=== PATIENT | female | born 1995 | race Caucasian/White ===

== ENCOUNTER 2018-01-14 15:16 | Emergency (ER) | payer OTHER ==
[2018-01-14 15:22] VITALS: RESP 18
[2018-01-14] MEDS ORDERED: ONDANSETRON 4 MG/2 ML VIAL IVP ONE (16:27)
[2018-01-14] MEDS ORDERED: KETOROLAC 30 MG/1 ML SDV IVP ONE (16:27)
--- NOTE | 2018-01-14 16:27 | EDPHY ---
H & P Stated Complaint: LLQ pain starting today, concerned re ovaria cyst Time Seen by Provider: 01/14/18 16:19 HPI/ROS: CHIEF COMPLAINT: Ovarian cyst HISTORY OF PRESENT ILLNESS: The patient is a 22-year-old female who comes to the emergency department complaining of left lower quadrant pain that is reminiscent of previous ovarian cysts that have ruptured. She states that she has had mild intermittent pain for the last week and then had severe intense pain about an hour ago that is now resolving. No fever. No vaginal bleeding or discharge. She denies risk of . No urinary symptoms. She feels slightly nauseous but has not vomited. REVIEW OF SYSTEMS: Constitutional: denies: chills, fever, recent illness, recent injury EENTM: denies: blurred vision, double vision, nose congestion Respiratory: denies: cough, shortness of breath Cardiac: denies: chest pain, irregular heart rate, lightheadedness, palpitations Gastrointestinal/Abdominal: See HPI Genitourinary: denies: dysuria, frequency, hematuria, pain Musculoskeletal: denies: joint pain, muscle pain Skin: denies: lesions, rash, jaundice, bruising Neurological: denies: headache, numbness, paresthesia, tingling, dizziness, weakness Hematologic/Lymphatic: denies: blood clots, easy bleeding, easy bruising Immunologic/allergic: denies: HIV/AIDS, transplant EXAM: GENERAL: Well-appearing, well-nourished and in no acute distress. HEAD: Atraumatic, normocephalic. EYES: Pupils equal round and reactive to light, extraocular movements intact, sclera anicteric, conjunctiva are normal. ENT: TMs normal, nares patent, oropharynx clear without exudates. Moist mucous membranes. NECK: Normal range of motion, supple without lymphadenopathy or JVD. LUNGS: Breath sounds clear to auscultation bilaterally and equal. No wheezes rales or rhonchi. HEART: Regular rate and rhythm without murmurs, rubs or gallops. ABDOMEN: Soft, nontender, normoactive bowel sounds. No guarding, no rebound. No masses appreciated. BACK: No CVA tenderness, no spinal tenderness, step-offs or deformities EXTREMITIES: Normal range of motion, no pitting or edema. No clubbing or cyanosis. NEUROLOGICAL: Cranial nerves II through XII grossly intact. Normal speech, normal gait. 5/5 strength, normal movement in all extremities, normal sensation PSYCH: Normal mood, normal affect. SKIN: Warm, dry, normal turgor, no visible rashes or lesions. Source: Patient Exam Limitations: No limitations - Personal History LMP (Females 10-55): IUD In Place Current Tetanus/Diphtheria Vaccine: Yes Current Tetanus Diphtheria and Acellular Pertussis (TDAP): Yes Tetanus Vaccine Date: < 10 years - Medical/Surgical History Hx Asthma: No Hx Chronic Respiratory Disease: No Hx Diabetes: No Hx Cardiac Disease: No Hx Renal Disease: No Hx Cirrhosis: No Hx Alcoholism: No Hx HIV/AIDS: No Hx Splenectomy or Spleen Trauma: No Other PMH: ovarian cysts - Family History Significant Family History: No pertinent family hx - Social History Smoking Status: Never smoked Alcohol Use: Sober Drug Use: None Constitutional: Initial Vital Signs Temperature (C) 37 C 01/14/18 15:19 Heart Rate 54 L 01/14/18 15:19 Respiratory Rate 18 01/14/18 15:19 Blood Pressure 100/93 H 01/14/18 15:19 O2 Sat (%) 97 01/14/18 15:19 O2 Delivery Mode Room Air Allergies/Adverse Reactions: Sulfa (Sulfonamide Antibiotics) Allergy (Verified 01/14/18 15:19) Home Medications: Medication Instructions Recorded NK [No Known Home Meds] 01/14/18 Medical Decision Making - Diagnostics Imaging: Discussed imaging studies w/ highwall drill operator Radiologist ED Course/Re-evaluation: Patient is feeling much better. We discussed ultrasound results. Her pain is resolving. She declines further workup or treatment. She is eager to go home. We discussed possibly increasing her control hormones. She will follow up with her OBGYN in [place]. Differential Diagnosis: Partial list of the Differential diagnosis considered include but were not limited to; ovarian cyst, ovarian torsion and although unlikely based on the history and physical exam, I also considered , urinary tract infection , kidney stone. I discussed these differential diagnoses and the plan with the patient as well as the usual and expected course. The patient understands that the diagnosis is provisional and that in medicine we are not always correct and that further workup is often warranted. Usual and customary warnings were given. All of the patient's questions were answered. The patient was instructed to return to the emergency department should the symptoms at all worsen or return, otherwise to followup with the physician as we discussed. - Data Points Medications Given: Discontinued Medications Ketorolac Tromethamine (Toradol) 15 mg IVP EDNOW ONE Stop: 01/14/18 16:28 Last Admin: 01/14/18 16:39 Dose: Not Given Ketorolac Tromethamine (Toradol) 30 mg IM EDNOW ONE Stop: 01/14/18 16:40 Last Admin: 01/14/18 16:42 Dose: 30 mg Ondansetron HCl (Zofran) 4 mg IVP EDNOW ONE Stop: 01/14/18 16:28 Last Admin: 01/14/18 16:39 Dose: Not Given Departure - Departure Disposition: Home, Routine, Self-Care Clinical Impression: Ovarian cyst Qualifiers: Laterality: left Qualified Code(s): N83.202 - Unspecified ovarian cyst, left side Condition: Good Instructions: Ovarian Cyst (ED) Referrals: HAMILTON MAST DO [Other] - As per Instructions
[2018-01-14] MEDS ORDERED: KETOROLAC 30 MG/1 ML SDV IM ONE (16:39)
[2018-01-14 18:44] VITALS: BP 129/73; PULSE 67; TEMP 98.2; O2SAT 95
== END 2018-01-14 18:48 | disposition home or self-care (01) ==
DX: N83.202 Unspecified ovarian cyst, left side (principal)
CPT/HCPCS: J1885